=== PATIENT | female | born 1950 | race Hispanic/Latino ===

== ENCOUNTER 2021-11-20 13:29 | Emergency (ER) | payer MEDICARE ==
[~2021-11-20] VITALS: Ht 177.8 cm; Wt 116.7 kg
[2021-11-20] MEDS ORDERED: NAPROXEN500 MG PO (15:04)
== END 2021-11-20 15:43 | disposition home or self-care (01) ==
LOC: FSED 13:39
DX: M53.3 Sacrococcygeal disorders, not elsewhere classified (principal); R03.0 Elevated blood-pressure reading, without diagnosis of hypertension; E66.01 Morbid (severe) obesity due to excess calories
CPT/HCPCS: 99283